=== PATIENT | female | born 1955 | race Caucasian/White ===

== ENCOUNTER 2023-01-24 06:29 | Emergency (ER) | payer MEDICAID ==
[~2023-01-24] VITALS: Ht 149.9 cm; Wt 82.6 kg
[2023-01-24 06:47] VITALS: BP 134/92; PULSE 114; TEMP 98.7; O2SAT 96
[2023-01-24] MEDS ORDERED: AMOX1TAB16 PO (07:08)
[2023-01-24] MEDS ORDERED: TOPUD PO (07:08)
[2023-01-24] MEDS ORDERED: ACETAMINOPHEN 325MG TABLET PO ONE (07:15)
== END 2023-01-24 07:15 | disposition home or self-care (01) ==
LOC: ER 06:29
DX: U07.1 COVID-19 (principal); J02.9 Acute pharyngitis, unspecified; E11.9 Type 2 diabetes mellitus without complications
CPT/HCPCS: 99283; 87426; 87430; 87070; C9803